=== PATIENT | male | born 1970 | race Caucasian/White ===

== ENCOUNTER 2024-04-23 10:41 | Inpatient (IN) | payer OTHER ==
[2024-04-23] VITALS (33 sets, daily range): BP systolic 41–129; BP diastolic 32–82; TEMP 93.3–98.4; O2SAT 87–100
[~2024-04-23] VITALS: Ht 170.2 cm; Wt 49.9 kg
[2024-04-23] MEDS ORDERED: NOREPINEPHRINE 8MG/NS 250ML 250 ML IV ONE (11:45)
[2024-04-23] MEDS: NOREPINEPHRINE 8MG/NS 250ML 250 ML IV PRN (11:55)
[2024-04-23 11:58] LABS: BASOPHILS % (AUTO) 0.2 % (0.0-2.0); LYMPHOCYTES # (AUTO) 0.8 K/uL (0.8-4.8); LYMPHOCYTES % (AUTO) 3.1 % (20.5-51.5); MEAN CORPUSCULAR HGB CONC 31 g/dL (32.5-36.3); MEAN CORPUSCULAR VOLUME 78.1 fL (73.0-96.2); MONOCYTES # (AUTO) 0.3 K/uL (0.1-1.30); MONOCYTES % (AUTO) 1.3 % (0.0-11.0); NEUTROPHILS # (AUTO) 24.3 K/uL (1.8-8.9); NEUTROPHILS % (AUTO) 95.4 % (38.5-71.5); PLATELET COUNT (AUTO) 247 K/uL (152-348); RED CELL DISTRIBUTION WIDTH 19.2 % (12.1-16.2); WHITE BLOOD COUNT (AUTO) 25.5 K/uL (3.6-10.2)
[2024-04-23] MEDS ORDERED: CLINDAMYCIN 600 MG PIGGYBACK**ER OMNI IV ONE (12:03)
[2024-04-23] MEDS: IV NORMAL SALINE 1000 ML BAG IV ONE ×2 (12:13→13:32)
[2024-04-23] MEDS: CLINDAMYCIN PHOSPHATE IV 600 MG in IV DEXTROSE 5% 100 ML IV ONE (12:13)
[2024-04-23 12:19] LABS: BILIRUBIN,DIRECT 0.1 mg/dL (0.0-0.2); BILIRUBIN,TOTAL 0.3 mg/dL (0.2-1.0); CREATININE 1.1 mg/dL (0.6-1.3); POTASSIUM 5.3 mmol/L (3.5-5.1); TOTAL PROTEIN, SERUM 3.5 g/dL (6.4-8.2)
[2024-04-23] MEDS ORDERED: PIPERACILLIN/TAZOBACTAM/D5W 50 ML IV ONE (12:38)
[2024-04-23] MEDS: PIPERACILLIN SODIUM/TAZOBACTAM 3.375 G in IV DEXTROSE 5% 50 ML IV ONE (12:40)
[2024-04-23 12:42] LABS: HEMOGLOBIN 2.2 g/dL (12.5-16.3); RED BLOOD CELL COUNT(AUTO) 0.92 MIL/uL (4.06-5.63)
[2024-04-23 12:48] LABS: DIFFERENTIAL COMMENT 1; HEMATOCRIT 7.2 % (36.7-47.1)
[2024-04-23 12:50] LABS: ALBUMIN 0.7 g/dL (3.4-5.0); LACTIC ACID 4.8 mmol/L (0.4-2.0)
[2024-04-23] MEDS ORDERED: VANCOMYCIN IV 200 ML ONE (13:22)
[2024-04-23] MEDS: VANCOMYCIN IV 1,000 MG in IV DEXTROSE 5% 250 ML IV ONE (13:32)
[2024-04-23 13:36] LABS: ABG BASE EXCESS -5.7 mmol/L (-2.0-3.0); ABG HCO3 19.4 mmol/L (21.0-28.0); ABG PCO2 34.8 mmHg (35.0-48.0); ABG PH 7.363 (7.350-7.450); ABG PO2 > 500.9 mmHg (83.0-108.0); ABG SITE LEFT RADIAL; ABG TOTAL HEMOGLOBIN < 4.9 G/dL (13.5-17.5); AaDO2 99.9 mmHg; COHb 0.3 % (0.5-1.5); MetHb 0.1 % (0.0-1.5); O2Hb 98.1 % (94.0-98.0); VT, ABG 500 mL
[2024-04-23] MEDS ORDERED: DEXAMETHASONE SOD PHOSPHATE 4 MG INJ ONE (13:37)
[2024-04-23] MEDS: DEXAMETHASONE SOD PHOSPHATE 4 MG INJ IV ONE (13:44)
[2024-04-23 14:27] LABS: ANISOCYTOSIS 2+; BAND % (MANUAL) 27 % (0-10); HYPOCHROMASIA 2+; LYMPHOCYTES % (MANUAL) 5 % (20-40); MONOCYTES % (MANUAL) 2 % (2-10); NEUTROPHILS % (MANUAL) 66 % (42-75); PLATELET ESTIMATE ADEQUATE
[2024-04-23] MEDS ORDERED: REMEDY ESSENTIAL ZINC PASTE 113 GM TP PRN (15:15)
[2024-04-23] MEDS ORDERED: CEFEPIME HCL 2 GM in IV DEXTROSE 5% 100 ML IV SCH (15:15)
[2024-04-23] MEDS ORDERED: ONDANSETRON 4 MG/2 ML VIAL IV PRN (15:15)
[2024-04-23] MEDS ORDERED: ETOMIDATE 20 MG/10 ML VIAL ONE (18:15)
[2024-04-23 18:28] LABS: RETICULOCYTE COUNT 2.4 % (0.4-2.2)
[2024-04-23 18:29] LABS: *BILIRUBIN,URIN 1+ (NEGATIVE); *BLOOD, URINE 1+ (NEGATIVE); *CLARITY,URINE CLOUDY (CLEAR); *COLOR,URINE YELLOW (YELLOW); *KETONES,URINE TRACE (NEGATIVE); *PROTEIN,URINE 1+ (NEGATIVE); *UROBILINOGEN,URINE 0.2 E.U./dl (NORMAL); LEUKOCYTE ESTERASE ,URINE 3+ (NEGATIVE); NITRITE, URINE NEGATIVE (NEGATIVE); PH,URINE 5.5 (5.0-8.0); UGLUCOSE NEGATIVE (NEGATIVE)
[2024-04-23] MEDS: SODIUM HYPOCHLORITE 0.5% TOP SCH (18:45)
[2024-04-23 18:54] LABS: BACTERIA,URINE MODERATE /HPF (NONE SEEN); WBC,URINE TNTC /HPF (0-3)
[2024-04-23 18:55] LABS: MUCUS,URINE FEW /LPF (0-FEW)
[2024-04-23] MEDS: CEFEPIME HCL 2 GM in IV DEXTROSE 5% 100 ML IV SCH (19:00)
[2024-04-23] MEDS: IV LACTATED RINGERS SOLUTION 1,000 ML IV SCH (19:00)
[2024-04-23] MEDS ORDERED: VANCOMYCIN IV 1,000 MG in IV DEXTROSE 5% 250 ML IV ONE (19:00)
[2024-04-23] MEDS ORDERED: CALCIUM CHLORIDE 1 GM/10 ML DISP.SYRIN IVP ONE (19:59)
[2024-04-23] MEDS ORDERED: CALCIUM GLUCONATE 1 GM/10 ML VIAL IV ONE (20:00)
[2024-04-23] MEDS: CALCIUM GLUCONATE IV 2 GM in IV NORMAL SALINE 100 ML IV ONE (20:08)
[2024-04-23] MEDS ORDERED: ALBUMIN HUMAN 25% 100 ML IV SCH (20:15)
[2024-04-23] MEDS: PROPOFOL 100 ML IV PRN (21:22)
[2024-04-23] MEDS: ALBUMIN HUMAN 25% 50 ML IV ONE (21:45)
[2024-04-23 23:51] LABS: CALCIUM 6.5 mg/dL (8.5-10.1); MAGNESIUM 1.6 mg/dL (1.8-2.4); PHOSPHOROUS 6.5 mg/dL (2.5-4.9); POTASSIUM 5.8 mmol/L (3.5-5.1); TOTAL PROTEIN, SERUM 4.5 g/dL (6.4-8.2)
[2024-04-24] VITALS (95 sets, daily range): BP systolic 86–133; BP diastolic 54–74; TEMP 97.6–100; O2SAT 100
[2024-04-24 00:02] LABS: ALBUMIN 1.2 g/dL (3.4-5.0)
[2024-04-24 00:13] LABS: BASOPHILS # (AUTO) 0.2 K/UL (0.0-0.2); MONOCYTES # (AUTO) 0.8 K/uL (0.1-1.30); NEUTROPHILS # (AUTO) 34.3 K/uL (1.8-8.9)
[2024-04-24 00:15] LABS: BASOPHILS % (AUTO) 0.4 % (0.0-2.0); EOSINOPHILS % (AUTO) 0.1 % (0.0-7.0); LYMPHOCYTES # (AUTO) 2.4 K/uL (0.8-4.8); LYMPHOCYTES % (AUTO) 6.4 % (20.5-51.5); MEAN CORPUSCULAR HEMOGLOBIN 28.1 uug (23.8-33.4); MEAN CORPUSCULAR HGB CONC 33 g/dL (32.5-36.3); MEAN CORPUSCULAR VOLUME 86.1 fL (73.0-96.2); NEUTROPHILS % (AUTO) 91.1 % (38.5-71.5); PLATELET COUNT (AUTO) 241 K/uL (152-348); RED CELL DISTRIBUTION WIDTH 16.9 % (12.1-16.2)
[2024-04-24 00:24] LABS: RED BLOOD CELL COUNT(AUTO) 2.04 MIL/uL (4.06-5.63); WHITE BLOOD COUNT (AUTO) 37.7 K/uL (3.6-10.2)
[2024-04-24 00:25] LABS: DIFFERENTIAL COMMENT 1; HEMATOCRIT 17.6 % (36.7-47.1); HEMOGLOBIN 5.7 g/dL (12.5-16.3)
[2024-04-24] MEDS: MAGNESIUM SULFATE/D5W 100 ML IV SCH ×2 (01:25→07:45)
[2024-04-24 01:47] LABS: BAND % (MANUAL) 4 % (0-10); LYMPHOCYTES % (MANUAL) 8 % (20-40); MONOCYTES % (MANUAL) 3 % (2-10); NEUTROPHILS % (MANUAL) 85 % (42-75)
[2024-04-24] MEDS: SODIUM BICARBONATE 8.4% 50 MEQ in IV D5/ 0.9% NACL 1,000 ML IV SCH (02:06)
[2024-04-24] MEDS: SODIUM BICARBONATE 8.4% 50 MEQ/50 ML DISP.SYRIN IV ONE (02:36)
[2024-04-24] MEDS: ALBUMIN HUMAN 25% 100 ML IV SCH (02:45)
[2024-04-24 03:37] LABS: BASOPHILS # (AUTO) 0.1 K/UL (0.0-0.2); HEMATOCRIT 21.6 % (36.7-47.1); MEAN CORPUSCULAR VOLUME 88.8 fL (73.0-96.2)
[2024-04-24 03:39] LABS: BASOPHILS % (AUTO) 0.4 % (0.0-2.0); LYMPHOCYTES # (AUTO) 2.2 K/uL (0.8-4.8); MEAN CORPUSCULAR HEMOGLOBIN 29.2 uug (23.8-33.4); MEAN CORPUSCULAR HGB CONC 33 g/dL (32.5-36.3); MONOCYTES # (AUTO) 1.3 K/uL (0.1-1.30); MONOCYTES % (AUTO) 3.4 % (0.0-11.0); NEUTROPHILS # (AUTO) 33.4 K/uL (1.8-8.9); NEUTROPHILS % (AUTO) 90.2 % (38.5-71.5); PLATELET COUNT (AUTO) 199 K/uL (152-348); RED CELL DISTRIBUTION WIDTH 16.4 % (12.1-16.2)
[2024-04-24] MEDS ORDERED: INSULIN REGULAR, HUMAN 1000 UNIT/10 ML VIAL ONE (03:49)
[2024-04-24] MEDS: FUROSEMIDE 40 MG/4 ML VIAL ONE (04:10)
[2024-04-24] MEDS: FUROSEMIDE 40 MG/4 ML VIAL IV ONE (04:18)
[2024-04-24] MEDS: INSULIN REGULAR, HUMAN 100 UNIT in IV NORMAL SALINE 99 ML IV PRN (04:25)
[2024-04-24 04:53] LABS: DIFFERENTIAL COMMENT 1; HEMOGLOBIN 7.1 g/dL (12.5-16.3); RED BLOOD CELL COUNT(AUTO) 2.43 MIL/uL (4.06-5.63); WHITE BLOOD COUNT (AUTO) 37.1 K/uL (3.6-10.2)
[2024-04-24 06:04] LABS: ABG BASE EXCESS -8.3 mmol/L (-2.0-3.0); ABG HCO3 14.7 mmol/L (21.0-28.0); ABG PCO2 21.3 mmHg (35.0-48.0); ABG PH 7.457 (7.350-7.450); ABG SITE RIGHT FEMORAL; ABG TOTAL HEMOGLOBIN 6.3 G/dL (13.5-17.5); AaDO2 99.4 mmHg; COHb 0.9 % (0.5-1.5); MetHb 0.3 % (0.0-1.5); O2Hb 97.8 % (94.0-98.0); VT, ABG 500 mL
[2024-04-24 06:29] LABS: BASOPHILS # (AUTO) 0.1 K/UL (0.0-0.2); BASOPHILS % (AUTO) 0.3 % (0.0-2.0); LYMPHOCYTES # (AUTO) 1.8 K/uL (0.8-4.8); MEAN CORPUSCULAR HEMOGLOBIN 29.4 uug (23.8-33.4); MEAN CORPUSCULAR HGB CONC 34 g/dL (32.5-36.3); MONOCYTES # (AUTO) 0.6 K/uL (0.1-1.30); MONOCYTES % (AUTO) 2.5 % (0.0-11.0); NEUTROPHILS % (AUTO) 90.2 % (38.5-71.5); PLATELET COUNT (AUTO) 152 K/uL (152-348); RED CELL DISTRIBUTION WIDTH 16.3 % (12.1-16.2); WHITE BLOOD COUNT (AUTO) 25.4 K/uL (3.6-10.2)
[2024-04-24 06:45] LABS: RED BLOOD CELL COUNT(AUTO) 1.86 MIL/uL (4.06-5.63)
[2024-04-24 06:46] LABS: HEMOGLOBIN 5.5 g/dL (12.5-16.3)
[2024-04-24 06:47] LABS: DIFFERENTIAL COMMENT 1; HEMATOCRIT 16.2 % (36.7-47.1)
[2024-04-24 06:56] LABS: CALCIUM 6.5 mg/dL (8.5-10.1); CREATININE 1.2 mg/dL (0.6-1.3); PHOSPHOROUS 5.5 mg/dL (2.5-4.9); POTASSIUM 4.4 mmol/L (3.5-5.1)
[2024-04-24 06:58] LABS: POTASSIUM 4.4 mmol/L (3.5-5.1)
[2024-04-24 06:59] LABS: CALCIUM 6.5 mg/dL (8.5-10.1); CREATININE 1.2 mg/dL (0.6-1.3); PHOSPHOROUS 5.5 mg/dL (2.5-4.9)
[2024-04-24] MEDS: BLOOD SUGAR DIAGNOSTIC 1 EACH STRIP VI SCH ×2 (07:57→20:23)
[2024-04-24] MEDS ORDERED: NOREPINEPHRINE 8MG/NS 250ML 250 ML IV PRN (08:00)
[2024-04-24] MEDS: NOREPINEPHRINE 8MG/NS 250ML 250 ML IV PRN (08:08)
[2024-04-24 08:37] LABS: NEUTROPHILS % (MANUAL) 0 % (42-75)
[2024-04-24] MEDS ORDERED: VANCOMYCIN HCL 750 MG in IV DEXTROSE 5% 250 ML IV SCH (09:00)
[2024-04-24] MEDS: PANTOPRAZOLE SODIUM 40 MG VIAL IV SCH (09:27)
[2024-04-24] MEDS: VANCOMYCIN HCL 750 MG in IV DEXTROSE 5% 250 ML IV ONE (10:32)
[2024-04-24 11:10] LABS: CALCIUM 6.4 mg/dL (8.5-10.1); CREATININE 1.1 mg/dL (0.6-1.3); MAGNESIUM 2.7 mg/dL (1.8-2.4); PHOSPHOROUS 5.7 mg/dL (2.5-4.9); POTASSIUM 4.1 mmol/L (3.5-5.1)
[2024-04-24] MEDS: NORMAL SALINE IV ONE (11:30)
[2024-04-24] MEDS: CALCIUM CHLORIDE IV ONE (11:30)
[2024-04-24 12:05] LABS: BAND % (MANUAL) 3 % (0-10); LYMPHOCYTES % (MANUAL) 7 % (20-40); NEUTROPHILS % (MANUAL) 88 % (42-75)
[2024-04-24 12:06] LABS: ANISOCYTOSIS 1+; PLATELET ESTIMATE DECREASED
[2024-04-24 12:07] LABS: HEMOGLOBIN 8.9 g/dL (12.5-16.3)
[2024-04-24 12:07] LABS: EOSINOPHILS % (MANUAL) 0 % (0-8); MONOCYTES % (MANUAL) 2 % (2-10)
[2024-04-24] MEDS ORDERED: ROCURONIUM BROMIDE 50 MG/5 ML VIAL ONE (12:58)
[2024-04-24 14:15] LABS: HIV-1 p24 ANTIGEN NON REACTIVE (NONREACTIVE); HIV-1/2 ANTIBODY NON REACTIVE (NONREACTIVE)
[2024-04-24] MEDS: CLINDAMYCIN PHOSPHATE IV 900 MG in IV DEXTROSE 5% 100 ML IV STA (14:53)
[2024-04-24 16:10] LABS: BASOPHILS # (AUTO) 0.1 K/UL (0.0-0.2); BASOPHILS % (AUTO) 0.3 % (0.0-2.0); HEMATOCRIT 28.6 % (36.7-47.1); HEMOGLOBIN 9.9 g/dL (12.5-16.3); LYMPHOCYTES # (AUTO) 0.6 K/uL (0.8-4.8); LYMPHOCYTES % (AUTO) 1.5 % (20.5-51.5); MEAN CORPUSCULAR HEMOGLOBIN 30.4 uug (23.8-33.4); MEAN CORPUSCULAR HGB CONC 35 g/dL (32.5-36.3); MEAN CORPUSCULAR VOLUME 87.7 fL (73.0-96.2); MONOCYTES # (AUTO) 0.2 K/uL (0.1-1.30); MONOCYTES % (AUTO) 0.4 % (0.0-11.0); NEUTROPHILS # (AUTO) 36.7 K/uL (1.8-8.9); NEUTROPHILS % (AUTO) 97.8 % (38.5-71.5); PLATELET COUNT (AUTO) 54 K/uL (152-348); RED BLOOD CELL COUNT(AUTO) 3.26 MIL/uL (4.06-5.63); RED CELL DISTRIBUTION WIDTH 15.6 % (12.1-16.2)
[2024-04-24 16:13] LABS: DIFFERENTIAL COMMENT 1
[2024-04-24 16:21] LABS: CREATININE 0.8 mg/dL (0.6-1.3); MAGNESIUM 2.5 mg/dL (1.8-2.4); PHOSPHOROUS 5.2 mg/dL (2.5-4.9); POTASSIUM 3.6 mmol/L (3.5-5.1)
[2024-04-24 16:22] LABS: MAGNESIUM 2.5 mg/dL (1.8-2.4); PHOSPHOROUS 5.3 mg/dL (2.5-4.9); URIC ACID 6.2 mg/dL (3.5-7.2)
[2024-04-24 16:30] LABS: CALCIUM 5.8 mg/dL (8.5-10.1)
[2024-04-24 16:31] LABS: WHITE BLOOD COUNT (AUTO) 37.5 K/uL (3.6-10.2)
[2024-04-24 16:52] LABS: THYROID STIMULATING HORMONE 0.776 mIU/mL (0.358-3.740)
[2024-04-24] MEDS: CALCIUM GLUCONATE IV 2 GM in IV NORMAL SALINE 100 ML IV SCH (19:00)
[2024-04-24 19:07] LABS: ANISOCYTOSIS 1+; BAND % (MANUAL) 38 % (0-10); LYMPHOCYTES % (MANUAL) 3 % (20-40); METAMYELOCYTES % 5 % (0-1); NEUTROPHILS % (MANUAL) 54 % (42-75); PLATELET ESTIMATE DECREASED
[2024-04-24] MEDS: INSULIN REGULAR, HUMAN 1000 UNIT/10 ML VIAL SQ PRN (20:28)
[2024-04-24 20:29] LABS: BASOPHILS # (AUTO) 0.2 K/UL (0.0-0.2); BASOPHILS % (AUTO) 0.4 % (0.0-2.0); HEMATOCRIT 30.1 % (36.7-47.1); HEMOGLOBIN 10.5 g/dL (12.5-16.3); LYMPHOCYTES % (AUTO) 3.1 % (20.5-51.5); MEAN CORPUSCULAR HEMOGLOBIN 30.2 uug (23.8-33.4); MEAN CORPUSCULAR HGB CONC 35 g/dL (32.5-36.3); MEAN CORPUSCULAR VOLUME 86.4 fL (73.0-96.2); MONOCYTES # (AUTO) 0.7 K/uL (0.1-1.30); MONOCYTES % (AUTO) 2.1 % (0.0-11.0); NEUTROPHILS % (AUTO) 94.4 % (38.5-71.5); RED BLOOD CELL COUNT(AUTO) 3.48 MIL/uL (4.06-5.63); RED CELL DISTRIBUTION WIDTH 15.5 % (12.1-16.2)
[2024-04-24 20:58] LABS: WHITE BLOOD COUNT (AUTO) 33.9 K/uL (3.6-10.2)
[2024-04-24 20:59] LABS: DIFFERENTIAL COMMENT 1; PLATELET COUNT (AUTO) 45 K/uL (152-348)
[2024-04-24 21:00] LABS: NEUTROPHILS % (MANUAL) 0 % (42-75)
[2024-04-24 21:01] LABS: LYMPHOCYTES % (MANUAL) 0 % (20-40)
[2024-04-25] VITALS (94 sets, daily range): BP systolic 65–136; BP diastolic 42–77; TEMP 97.2–99; O2SAT 97–100
[2024-04-25 05:44] LABS: CREATININE 0.7 mg/dL (0.6-1.3); POTASSIUM 3.3 mmol/L (3.5-5.1)
[2024-04-25 08:10] LABS: ABG BASE EXCESS -4.2 mmol/L (-2.0-3.0); ABG PCO2 28.8 mmHg (35.0-48.0); ABG PH 7.437 (7.350-7.450); ABG PO2 166.6 mmHg (83.0-108.0); ABG SITE RIGHT RADIAL; AaDO2 99.2 mmHg; COHb 0.2 % (0.5-1.5); MetHb 0.1 % (0.0-1.5); O2Hb 98.5 % (94.0-98.0); VT, ABG 475 mL
[2024-04-25] MEDS: VANCOMYCIN HCL 750 MG in IV DEXTROSE 5% 250 ML IV SCH (09:08)
[2024-04-25] MEDS ORDERED: JEVITY 1.2 1000 ML LIQUID NG PRN (10:00)
[2024-04-25] MEDS: IV LACTATED RINGERS SOLUTION 1,000 ML IV PRN (10:00)
[2024-04-25] MEDS: POTASSIUM CHLORIDE 50 ML IV SCH (10:09)
[2024-04-25] MEDS: SODIUM HYPOCHLORITE 0.125% (QUARTER STRENGTH) 473 ML BOTTLE TP SCH (12:16)
[2024-04-25] MEDS: GLUCERNA 1.2 1000ML LIQUID GT PRN (14:45)
[2024-04-25] MEDS: CLINDAMYCIN PHOSPHATE IV 900 MG in IV DEXTROSE 5% 100 ML IV SCH (15:33)
[2024-04-25] MEDS: PROTEIN SUPPLEMENT (PROSTAT) 30 ML LIQUID GT SCH (20:56)
[2024-04-26] VITALS (99 sets, daily range): BP systolic 84–141; BP diastolic 54–80; TEMP 97.5–100.1; O2SAT 96–100
[2024-04-26] MEDS ORDERED: CLINDAMYCIN PHOSPHATE IV 900 MG in IV DEXTROSE 5% 50 ML IV SCH (05:08)
[2024-04-26 05:30] LABS: BASOPHILS # (AUTO) 0.1 K/UL (0.0-0.2); BASOPHILS % (AUTO) 0.3 % (0.0-2.0); EOSINOPHILS % (AUTO) 0.1 % (0.0-7.0); HEMATOCRIT 33.5 % (36.7-47.1); HEMOGLOBIN 11.4 g/dL (12.5-16.3); LYMPHOCYTES % (AUTO) 11.7 % (20.5-51.5); MEAN CORPUSCULAR HEMOGLOBIN 30.1 uug (23.8-33.4); MEAN CORPUSCULAR HGB CONC 34 g/dL (32.5-36.3); MEAN CORPUSCULAR VOLUME 88.2 fL (73.0-96.2); MONOCYTES # (AUTO) 0.8 K/uL (0.1-1.30); MONOCYTES % (AUTO) 3.1 % (0.0-11.0); NEUTROPHILS # (AUTO) 21.9 K/uL (1.8-8.9); NEUTROPHILS % (AUTO) 84.8 % (38.5-71.5); RED CELL DISTRIBUTION WIDTH 16.2 % (12.1-16.2); WHITE BLOOD COUNT (AUTO) 25.8 K/uL (3.6-10.2)
[2024-04-26 06:02] LABS: DIFFERENTIAL COMMENT 1; PLATELET COUNT (AUTO) 9 K/uL (152-348)
[2024-04-26 06:22] LABS: CALCIUM 6.9 mg/dL (8.5-10.1); CARBON DIOXIDE 23 mmol/L (21-32); CHLORIDE 113 mmol/L (98-107); CREATININE 0.5 mg/dL (0.6-1.3); GLUCOSE 128 mg/dL (74-106); MAGNESIUM 2.2 mg/dL (1.8-2.4); PHOSPHOROUS 2.6 mg/dL (2.5-4.9); POTASSIUM 3.2 mmol/L (3.5-5.1); SODIUM SERUM 145 mmol/L (136-145); UREA NITROGEN, BLOOD 30 mg/dL (7-18)
[2024-04-26] MEDS: GLUCERNA 1.2 1000ML LIQUID GT PRN (07:40)
[2024-04-26] MEDS: ZINC SULFATE 220 MG CAPSULE NG SCH (08:26)
[2024-04-26] MEDS: MULTIVIT, IRON, MIN NO. 8, FA TABLET NG SCH (08:26)
[2024-04-26] MEDS: THIAMINE HCL 100 MG TABLET NG SCH (08:27)
[2024-04-26] MEDS: PANTOPRAZOLE SODIUM 40 MG VIAL IV SCH (08:27)
[2024-04-26] MEDS ORDERED: PANTOPRAZOLE ORAL SUSPENSION 40 MG SUSPDR.PKT GT SCH (09:00)
[2024-04-26] MEDS: POTASSIUM CHLORIDE 20 MEQ POWDER PACKET GT ONE (10:16)
[2024-04-26 12:49] LABS: ANISOCYTOSIS 1+; BASOPHILS % (MANUAL) 0 % (0-2); EOSINOPHILS % (MANUAL) 0 % (0-8); LYMPHOCYTES % (MANUAL) 10 % (20-40); MONOCYTES % (MANUAL) 2 % (2-10); NEUTROPHILS % (MANUAL) 88 % (42-75); PLATELET ESTIMATE DECREASED
[2024-04-26] MEDS: CLINDAMYCIN PHOSPHATE IV 900 MG in IV DEXTROSE 5% 50 ML IV SCH (14:56)
[2024-04-27] VITALS (28 sets, daily range): BP systolic 74–115; BP diastolic 46–66; TEMP 98.1–99.6; O2SAT 98–100
[2024-04-27 05:25] LABS: WHITE BLOOD COUNT (AUTO) 15.5 K/uL (3.6-10.2)
[2024-04-27 05:27] LABS: BASOPHILS % (AUTO) 0.2 % (0.0-2.0); HEMATOCRIT 24.9 % (36.7-47.1); HEMOGLOBIN 8.6 g/dL (12.5-16.3); LYMPHOCYTES # (AUTO) 1.5 K/uL (0.8-4.8); LYMPHOCYTES % (AUTO) 9.8 % (20.5-51.5); MEAN CORPUSCULAR HEMOGLOBIN 30.8 uug (23.8-33.4); MEAN CORPUSCULAR HGB CONC 35 g/dL (32.5-36.3); MEAN CORPUSCULAR VOLUME 88.9 fL (73.0-96.2); MONOCYTES # (AUTO) 0.6 K/uL (0.1-1.30); MONOCYTES % (AUTO) 3.6 % (0.0-11.0); NEUTROPHILS # (AUTO) 13.4 K/uL (1.8-8.9); NEUTROPHILS % (AUTO) 86.4 % (38.5-71.5)
[2024-04-27 05:59] LABS: CALCIUM 6.6 mg/dL (8.5-10.1); CARBON DIOXIDE 24 mmol/L (21-32); CHLORIDE 113 mmol/L (98-107); CREATININE 0.5 mg/dL (0.6-1.3); GLUCOSE 121 mg/dL (74-106); MAGNESIUM 1.9 mg/dL (1.8-2.4); PHOSPHOROUS 3.2 mg/dL (2.5-4.9); POTASSIUM 3.8 mmol/L (3.5-5.1); SODIUM SERUM 144 mmol/L (136-145); UREA NITROGEN, BLOOD 36 mg/dL (7-18)
[2024-04-27 06:17] LABS: DIFFERENTIAL COMMENT 1; PLATELET COUNT (AUTO) 15 K/uL (152-348)
[2024-04-27 08:08] LABS: LYMPHOCYTES % (MANUAL) 14 % (20-40); NEUTROPHILS % (MANUAL) 86 % (42-75)
[2024-04-27 08:09] LABS: PLATELET ESTIMATE MARKED DECREASED
[2024-04-27 09:32] LABS: ABG BASE EXCESS -0.2 mmol/L (-2.0-3.0); ABG HCO3 22.4 mmol/L (21.0-28.0); ABG PCO2 28.4 mmHg (35.0-48.0); ABG PH 7.514 (7.350-7.450); ABG PO2 121.9 mmHg (83.0-108.0); ABG SITE RIGHT RADIAL; ABG TOTAL HEMOGLOBIN 8.1 G/dL (13.5-17.5); AaDO2 98.8 mmHg; COHb 0.8 % (0.5-1.5); MetHb 0.3 % (0.0-1.5); O2Hb 97.1 % (94.0-98.0); VT, ABG 450 mL
[2024-04-28] VITALS (94 sets, daily range): BP systolic 85–119; BP diastolic 46–68; TEMP 98–100; O2SAT 82–100
[2024-04-28] MEDS: DEXTROSE 50% 50 ML DISP.SYRIN IV PRN (03:49)
[2024-04-28 05:28] LABS: BASOPHILS % (AUTO) 0.3 % (0.0-2.0); EOSINOPHILS % (AUTO) 0.1 % (0.0-7.0); LYMPHOCYTES # (AUTO) 2.2 K/uL (0.8-4.8); LYMPHOCYTES % (AUTO) 17.6 % (20.5-51.5); MEAN CORPUSCULAR HEMOGLOBIN 30.7 uug (23.8-33.4); MEAN CORPUSCULAR HGB CONC 35 g/dL (32.5-36.3); MEAN CORPUSCULAR VOLUME 88.7 fL (73.0-96.2); MONOCYTES # (AUTO) 0.3 K/uL (0.1-1.30); MONOCYTES % (AUTO) 2.7 % (0.0-11.0); NEUTROPHILS % (AUTO) 79.3 % (38.5-71.5); RED CELL DISTRIBUTION WIDTH 15.9 % (12.1-16.2); WHITE BLOOD COUNT (AUTO) 12.7 K/uL (3.6-10.2)
[2024-04-28 06:23] LABS: DIFFERENTIAL COMMENT 1; PLATELET COUNT (AUTO) 26 K/uL (152-348)
[2024-04-28 07:13] LABS: ALANINE AMINOTRANSFERASE 14 U/L (16-63); ALKALINE PHOSPHATASE 239 U/L (50-136); ASPARTATE AMINOTRANSFERASE 17 U/L (15-37); BILIRUBIN,DIRECT 0.4 mg/dL (0.0-0.2); CALCIUM 6.3 mg/dL (8.5-10.1); CARBON DIOXIDE 22 mmol/L (21-32); CHLORIDE 113 mmol/L (98-107); CREATININE 0.6 mg/dL (0.6-1.3); GLUCOSE 90 mg/dL (74-106); LIPASE 11 U/L (16-77); MAGNESIUM 1.8 mg/dL (1.8-2.4); PHOSPHOROUS 2.6 mg/dL (2.5-4.9); POTASSIUM 3.2 mmol/L (3.5-5.1); SODIUM SERUM 148 mmol/L (136-145); TOTAL PROTEIN, SERUM 3.9 g/dL (6.4-8.2); UREA NITROGEN, BLOOD 36 mg/dL (7-18)
[2024-04-28 07:44] LABS: TRIGLYCERIDES 82 MG/DL (30-150)
[2024-04-28 08:59] LABS: ABG HCO3 22.3 mmol/L (21.0-28.0); ABG PCO2 26.6 mmHg (35.0-48.0); ABG PH 7.541 (7.350-7.450); ABG PO2 111.6 mmHg (83.0-108.0); ABG SITE RIGHT RADIAL; ABG TOTAL HEMOGLOBIN 7.3 G/dL (13.5-17.5); AaDO2 98.6 mmHg; COHb 0.9 % (0.5-1.5); MetHb 0.1 % (0.0-1.5); O2Hb 96.8 % (94.0-98.0); VT, ABG 450 mL
[2024-04-28 10:12] LABS: ANISOCYTOSIS 1+; LYMPHOCYTES % (MANUAL) 4 % (20-40); MONOCYTES % (MANUAL) 3 % (2-10); NEUTROPHILS % (MANUAL) 93 % (42-75); PLATELET ESTIMATE DECREASED
[2024-04-28] MEDS: POTASSIUM CHLORIDE 20 MEQ POWDER PACKET GT ONE (12:28)
[2024-04-28] MEDS: LIDOCAINE 2%-EPI 1:100,000 20 ML VIAL IJ ONE (14:00)
[2024-04-29] VITALS (92 sets, daily range): BP systolic 80–124; BP diastolic 48–72; TEMP 97.4–100.2; O2SAT 97–100
[2024-04-29] MEDS: SODIUM HYPOCHLORITE 0.125% (QUARTER STRENGTH) 473 ML BOTTLE TP SCH (03:30)
[2024-04-29 05:18] LABS: EOSINOPHILS % (AUTO) 0.3 % (0.0-7.0); HEMOGLOBIN 7.5 g/dL (12.5-16.3); MEAN CORPUSCULAR VOLUME 89.5 fL (73.0-96.2); MONOCYTES # (AUTO) 0.5 K/uL (0.1-1.30)
[2024-04-29 05:22] LABS: BASOPHILS % (AUTO) 0.3 % (0.0-2.0); HEMATOCRIT 22.6 % (36.7-47.1); LYMPHOCYTES # (AUTO) 2.6 K/uL (0.8-4.8); LYMPHOCYTES % (AUTO) 15.7 % (20.5-51.5); MEAN CORPUSCULAR HEMOGLOBIN 29.8 uug (23.8-33.4); MEAN CORPUSCULAR HGB CONC 33 g/dL (32.5-36.3); MONOCYTES % (AUTO) 3.2 % (0.0-11.0); NEUTROPHILS # (AUTO) 13.5 K/uL (1.8-8.9); NEUTROPHILS % (AUTO) 80.5 % (38.5-71.5); RED BLOOD CELL COUNT(AUTO) 2.53 MIL/uL (4.06-5.63); RED CELL DISTRIBUTION WIDTH 16.1 % (12.1-16.2); WHITE BLOOD COUNT (AUTO) 16.8 K/uL (3.6-10.2)
[2024-04-29 05:34] LABS: CALCIUM 6.3 mg/dL (8.5-10.1); CARBON DIOXIDE 23 mmol/L (21-32); CHLORIDE 111 mmol/L (98-107); CREATININE 0.6 mg/dL (0.6-1.3); GLUCOSE 89 mg/dL (74-106); MAGNESIUM 1.6 mg/dL (1.8-2.4); PHOSPHOROUS 2.7 mg/dL (2.5-4.9); POTASSIUM 3.7 mmol/L (3.5-5.1); SODIUM SERUM 142 mmol/L (136-145); UREA NITROGEN, BLOOD 39 mg/dL (7-18)
[2024-04-29 05:36] LABS: DIFFERENTIAL COMMENT 1; PLATELET COUNT (AUTO) 47 K/uL (152-348)
[2024-04-29 05:41] LABS: ABG BASE EXCESS -1.2 mmol/L (-2.0-3.0); ABG HCO3 21.7 mmol/L (21.0-28.0); ABG PCO2 28.6 mmHg (35.0-48.0); ABG PH 7.498 (7.350-7.450); ABG PO2 104.2 mmHg (83.0-108.0); ABG SITE RIGHT RADIAL; ABG TOTAL HEMOGLOBIN 7.3 G/dL (13.5-17.5); AaDO2 98.2 mmHg; COHb 0.8 % (0.5-1.5); MetHb 0.5 % (0.0-1.5); O2Hb 96.3 % (94.0-98.0); VT, ABG 450 mL
[2024-04-29] MEDS: MAGNESIUM SULFATE/D5W 100 ML IV SCH (10:55)
[2024-04-29] MEDS ORDERED: AMPICILLIN 2 G VIAL IM SCH (14:30)
[2024-04-29 15:49] LABS: LYMPHOCYTES % (MANUAL) 14 % (20-40); MONOCYTES % (MANUAL) 2 % (2-10); NEUTROPHILS % (MANUAL) 84 % (42-75)
[2024-04-29 15:50] LABS: PLATELET ESTIMATE MARKED DECREASED
[2024-04-29 15:51] LABS: ANISOCYTOSIS 1+
[2024-04-29] MEDS: MEROPENEM 1 G in IV NORMAL SALINE 100 ML IV SCH (16:05)
[2024-04-29] MEDS: AMPICILLIN 2 G in NS 100 ML IV SCH (16:06)
[2024-04-30] VITALS (76 sets, daily range): BP systolic 72–141; BP diastolic 47–108; TEMP 98.2–100.5; O2SAT 94–100
[2024-04-30 04:41] LABS: BASOPHILS % (AUTO) 0.1 % (0.0-2.0); DIFFERENTIAL COMMENT 0; EOSINOPHILS % (AUTO) 0.3 % (0.0-7.0); LYMPHOCYTES # (AUTO) 1.2 K/uL (0.8-4.8); LYMPHOCYTES % (AUTO) 9.1 % (20.5-51.5); MEAN CORPUSCULAR HEMOGLOBIN 30.2 uug (23.8-33.4); MEAN CORPUSCULAR HGB CONC 34 g/dL (32.5-36.3); MEAN CORPUSCULAR VOLUME 87.8 fL (73.0-96.2); MONOCYTES # (AUTO) 0.3 K/uL (0.1-1.30); MONOCYTES % (AUTO) 2.4 % (0.0-11.0); NEUTROPHILS # (AUTO) 11.3 K/uL (1.8-8.9); NEUTROPHILS % (AUTO) 88.1 % (38.5-71.5); WHITE BLOOD COUNT (AUTO) 12.9 K/uL (3.6-10.2)
[2024-04-30 04:46] LABS: RED BLOOD CELL COUNT(AUTO) 1.96 MIL/uL (4.06-5.63)
[2024-04-30 04:47] LABS: HEMATOCRIT 17.2 % (36.7-47.1); HEMOGLOBIN 5.9 g/dL (12.5-16.3); PLATELET COUNT (AUTO) 47 K/uL (152-348)
[2024-04-30 04:57] LABS: CALCIUM 6.1 mg/dL (8.5-10.1); CARBON DIOXIDE 26 mmol/L (21-32); CHLORIDE 110 mmol/L (98-107); CREATININE 0.6 mg/dL (0.6-1.3); GLUCOSE 181 mg/dL (74-106); MAGNESIUM 1.6 mg/dL (1.8-2.4); PHOSPHOROUS 2.9 mg/dL (2.5-4.9); POTASSIUM 3.3 mmol/L (3.5-5.1); SODIUM SERUM 143 mmol/L (136-145); UREA NITROGEN, BLOOD 46 mg/dL (7-18)
[2024-04-30 05:09] LABS: LYMPHOCYTES % (MANUAL) 9 % (20-40); MONOCYTES % (MANUAL) 2 % (2-10); NEUTROPHILS % (MANUAL) 89 % (42-75)
[2024-04-30 05:10] LABS: ANISOCYTOSIS 1+; PLATELET ESTIMATE DECREASED
[2024-04-30 05:43] LABS: ABG BASE EXCESS 0.3 mmol/L (-2.0-3.0); ABG HCO3 23.3 mmol/L (21.0-28.0); ABG PCO2 30.1 mmHg (35.0-48.0); ABG PH 7.507 (7.350-7.450); ABG PO2 108.2 mmHg (83.0-108.0); ABG SITE RIGHT RADIAL; ABG TOTAL HEMOGLOBIN 6.6 G/dL (13.5-17.5); AaDO2 98.4 mmHg; COHb 0.9 % (0.5-1.5); MetHb 0.3 % (0.0-1.5); O2Hb 96.4 % (94.0-98.0); VT, ABG 450 mL
[2024-04-30] MEDS: MAGNESIUM OXIDE 400 MG TABLET GT ONE (11:30)
[2024-04-30] MEDS: POTASSIUM CHLORIDE 20 MEQ POWDER PACKET GT ONE (11:30)
[2024-04-30 15:01] LABS: BASOPHILS % (AUTO) 0.4 % (0.0-2.0); EOSINOPHILS # (AUTO) 0.1 K/uL (0.0-0.7); EOSINOPHILS % (AUTO) 0.4 % (0.0-7.0); LYMPHOCYTES # (AUTO) 1.5 K/uL (0.8-4.8); LYMPHOCYTES % (AUTO) 11.1 % (20.5-51.5); MEAN CORPUSCULAR HEMOGLOBIN 29.2 uug (23.8-33.4); MEAN CORPUSCULAR HGB CONC 33 g/dL (32.5-36.3); MEAN CORPUSCULAR VOLUME 87.3 fL (73.0-96.2); MONOCYTES # (AUTO) 0.3 K/uL (0.1-1.30); MONOCYTES % (AUTO) 2.4 % (0.0-11.0); NEUTROPHILS # (AUTO) 11.3 K/uL (1.8-8.9); NEUTROPHILS % (AUTO) 85.7 % (38.5-71.5); PLATELET COUNT (AUTO) 54 K/uL (152-348); RED CELL DISTRIBUTION WIDTH 15.9 % (12.1-16.2); WHITE BLOOD COUNT (AUTO) 13.1 K/uL (3.6-10.2)
[2024-04-30 15:04] LABS: RED BLOOD CELL COUNT(AUTO) 2.21 MIL/uL (4.06-5.63)
[2024-04-30 15:05] LABS: DIFFERENTIAL COMMENT 1; HEMATOCRIT 19.3 % (36.7-47.1); HEMOGLOBIN 6.4 g/dL (12.5-16.3)
[2024-04-30] MEDS: ACETAMINOPHEN 650 MG/20.3 ML LIQUID UDC GT PRN (15:50)
[2024-04-30 20:43] LABS: LYMPHOCYTES % (MANUAL) 11 % (20-40); MONOCYTES % (MANUAL) 2 % (2-10); NEUTROPHILS % (MANUAL) 87 % (42-75); PLATELET ESTIMATE DECREASED
[2024-05-01] VITALS (26 sets, daily range): BP systolic 90–108; BP diastolic 50–68; TEMP 98.5–100.5; O2SAT 99–100
[2024-05-01 05:47] LABS: CALCIUM 6.3 mg/dL (8.5-10.1); CARBON DIOXIDE 24 mmol/L (21-32); CHLORIDE 112 mmol/L (98-107); CREATININE 0.6 mg/dL (0.6-1.3); GLUCOSE 96 mg/dL (74-106); MAGNESIUM 1.7 mg/dL (1.8-2.4); POTASSIUM 3.4 mmol/L (3.5-5.1); SODIUM SERUM 144 mmol/L (136-145); UREA NITROGEN, BLOOD 44 mg/dL (7-18)
[2024-05-01] MEDS: POTASSIUM CHLORIDE 20 MEQ POWDER PACKET GT ONE (09:59)
[2024-05-01] MEDS: MAGNESIUM OXIDE 400 MG TABLET GT ONE (10:02)
[2024-05-02] VITALS (97 sets, daily range): BP systolic 76–126; BP diastolic 43–75; TEMP 97–99.2; O2SAT 89–100
[2024-05-02] MEDS: PANTOPRAZOLE ORAL SUSPENSION 40 MG SUSPDR.PKT GT SCH (06:37)
[2024-05-03] VITALS (60 sets, daily range): BP systolic 80–140; BP diastolic 55–85; TEMP 96.1–98.9; O2SAT 99–100
[2024-05-03] MEDS ORDERED: LORAZEPAM 2 MG/1 ML VIAL IV PRN (15:00)
[2024-05-03] MEDS: MORPHINE SULFATE PF IV DRIP 100 MG in IV DEXTROSE 5% 96 ML IV PRN (16:01)
[2024-05-04] VITALS (13 sets, daily range): BP systolic 36–73; BP diastolic 28–51; O2SAT 99–100
== END 2024-05-04 07:30 | DRG 710 ==
LOC: ER 10:42 → CCU 17:02
PROVIDERS: ADMIT Nurse Practitioner Acute Care; ATTEND Nurse Practitioner Acute Care
PROC: 30243N1 Transfusion of Nonautologous Red Blood Cells into Central Vein, Percutaneous Approach (ICD-10-PCS; principal; 2024-04-23)
PROC: 06HY33Z Insertion of Infusion Device into Lower Vein, Percutaneous Approach (ICD-10-PCS; principal; 2024-04-23)
PROC: 5A1955Z Respiratory Ventilation, Greater than 96 Consecutive Hours (ICD-10-PCS; principal; 2024-04-23)
PROC: 0BH17EZ Insertion of Endotracheal Airway into Trachea, Via Natural or Artificial Opening (ICD-10-PCS; principal; 2024-04-23)
PROC: 30243K1 Transfusion of Nonautologous Frozen Plasma into Central Vein, Percutaneous Approach (ICD-10-PCS; principal; 2024-04-23)
PROC: 0Y6C0Z2 Detachment at Right Upper Leg, Mid, Open Approach (ICD-10-PCS; 2024-04-24)
PROC: 0JB70ZZ Excision of Back Subcutaneous Tissue and Fascia, Open Approach (ICD-10-PCS; 2024-04-28)
PROC: 02HV33Z Insertion of Infusion Device into Superior Vena Cava, Percutaneous Approach (ICD-10-PCS; 2024-04-29)
DX: A41.81 Sepsis due to Enterococcus (principal); J96.01 Acute respiratory failure with hypoxia; R65.21 Severe sepsis with septic shock; M72.6 Necrotizing fasciitis; A48.0 Gas gangrene; L89.154 Pressure ulcer of sacral region, stage 4; R53.2 Functional quadriplegia; N17.9 Acute kidney failure, unspecified; R64 Cachexia; E43 Unspecified severe protein-calorie malnutrition; Z66 Do not resuscitate; Z51.5 Encounter for palliative care; A41.51 Sepsis due to Escherichia coli [E. coli]; Z16.12 Extended spectrum beta lactamase (ESBL) resistance; D62 Acute posthemorrhagic anemia; L89.521 Pressure ulcer of left ankle, stage 1; E87.6 Hypokalemia; E11.42 Type 2 diabetes mellitus with diabetic polyneuropathy; Z68.1 Body mass index [BMI] 19.9 or less, adult; L89.621 Pressure ulcer of left heel, stage 1; L89.214 Pressure ulcer of right hip, stage 4; E11.69 Type 2 diabetes mellitus with other specified complication; M86.8X7 Other osteomyelitis, ankle and foot; B96.89 Other specified bacterial agents as the cause of diseases classified elsewhere; G61.81 Chronic inflammatory demyelinating polyneuritis; M89.8X9 Other specified disorders of bone, unspecified site; N39.0 Urinary tract infection, site not specified; B96.20 Unspecified Escherichia coli [E. coli] as the cause of diseases classified elsewhere; R62.7 Adult failure to thrive; E87.5 Hyperkalemia; E87.4 Mixed disorder of acid-base balance; E87.1 Hypo-osmolality and hyponatremia; J98.2 Interstitial emphysema; I51.7 Cardiomegaly; J90 Pleural effusion, not elsewhere classified; D69.6 Thrombocytopenia, unspecified
CPT/HCPCS: 36415; 36569; 36600; 70030-TC; 71045; 73600; 76770; 82533; 82803; 83605; 83690; 83735; 84100; 84443; 84478; 84484; 84550; 85018; 85025; 85610; 85651; 85730; 86803; 86850; 86900; 86901; 86920; 87040; 87077; 87806; 88312-TC; 93307; 94002; 94003; 94760; 99082-TC; A4606; A4649; A4663; A6209; G0378; J0290; J0612; J0692; J1100; J1815; J1940; J2185; J2274; J2470; J2543; J3370; J3475; J3480; J3490; J7040; J7042; J7050; J7120; P9012; P9016; P9035; P9047; P9059